=== PATIENT | female | born 2000 | race Caucasian/White ===

== ENCOUNTER 2022-11-13 15:04 | Emergency (ER) | payer MEDICAID, SELFPAY ==
[2022-11-13 15:23] VITALS: BP 131/77; PULSE 89; RESP 16; TEMP 37.2; O2SAT 99
--- NOTE | 2022-11-13 15:45 | ED.LOWEXIN ---
HPI - Extremity Injury (Lower) General Chief Complaint: Extremity Injury, Lower Stated Complaint: left foot pain Time Seen by Provider: 11/13/22 15:45 Source: patient Mode of arrival: ambulatory Limitations: no limitations History of Present Illness HPI Narrative: 22-year-old female presented for complaint of left foot pain over the last 2 days. She endorses recent diagnosis of diabetic neuropathy and bone necrosis. Taking gabapentin but states it is not helping. States she woke yesterday with a feeling of 'compression and constriction' in the foot/ankle area and was unable to go to work x2 days. Denies injury. Not taking anything additional for pain. Denies swelling or bruising. Related Data Allergies Allergy/AdvReac Type Severity Reaction Status Date / Time No Known Allergies Allergy Unknown Unverified 07/31/12 12:27 Review of Systems Review of Systems: CONSTITUTIONAL: Denies body aches, fever, chills EYES: Denies visual changes ENT: Denies rhinorrhea, congestion CARDIOVASCULAR: Denies chest pain, palpitations, or edema. RESPIRATORY: Denies cough or dyspnea. GASTROINTESTINAL: Denies abdominal pain, nausea, vomiting, or diarrhea. SKIN: Denies rash, itching, or wounds. MUSCULOSKELETAL: reports left foot pain Denies back pain, joint pain, or myalgia. NEUROLOGIC: Denies headache, numbness, tingling, or weakness. All systems reviewed & are unremarkable except as noted in HPI and below PMFSH Past Medical History Medical History (Updated 11/13/22 @ 15:54 by Elvira Royal, ZORA) Diabetes Comments At time of signature, I have reviewed and agree with nursing past medical, surgical, social and family history unless otherwise noted. Please see nursing chart for further information. There is no relevant family history pertinent to the presenting complaint Exam Narrative: GENERAL: Well-appearing HEAD: Normocephalic, atraumatic. EYES: PERRLA, conjunctivae clear NECK: Supple. CHEST: Speaks in full sentences. No respiratory distress. HEART: Regular rate and rhythm. Normal and equal peripheral pulses. EXTREMITIES: Left foot has normal strength and sensation, full range of motion at ankle. No erythema, swelling or ecchymosis, No point tenderness. No open wounds, or obvious deformity; alignment normal, pulse palpable and equal bilaterally, skin warm, dry, pink. Capillary refill less than 3 seconds. SKIN: Warm, dry, no rash. NEURO: Alert and oriented x3. PSYCH: Normal mood and affect Course Course Emergency Course: Patient is aware of diagnosis, understands and agrees to treatment plan. Anticipatory guidance given. Patient agrees to follow-up as directed and is aware of reasons to seek care at the emergency department. Portions of this record may have been created with voice recognition software Level of Care: Express Care Visit Vital Signs Vital signs: Vital Signs Temperature 98.9 F 11/13/22 15:23 Pulse Rate 89 11/13/22 15:23 Respiratory Rate 16 11/13/22 15:23 Blood Pressure 131/77 11/13/22 15:23 Pulse Oximetry 99 11/13/22 15:23 Oxygen Delivery Room Air 11/13/22 15:23 Temperature 98.9 F 11/13/22 15:23 Pulse Rate 89 11/13/22 15:23 Respiratory Rate 16 11/13/22 15:23 Blood Pressure 131/77 11/13/22 15:23 Pulse Oximetry 99 11/13/22 15:23 Oxygen Delivery Room Air 11/13/22 15:23 Reviewed MDM - Extremity Injury (Lower) MDM Narrative Medical decision making narrative: Discussed physical exam findings. Patient plans to discuss her complaint with her PCP tomorrow, she states she just needed a work note today. Advised supportive measures and signs/symptoms to go to the ER. Pt is appropriate for outpt treatment and f/u. Differential Diagnosis Differential diagnosis: Likely other (foot sprain/strain, plantar fasciitis, neuropathy, arthritis, gout, contusion) Discharge Plan Discharge Clinical Impression: Acute pain of left foot Patient Disposition
== END 2022-11-13 15:53 | disposition home or self-care (01) ==
PROVIDERS: Emergency Provider Nurse Practitioner Family
DX: M79.672 Pain in left foot (principal); E11.40 Type 2 diabetes mellitus with diabetic neuropathy, unspecified
CPT/HCPCS: 99212; G0463

== ENCOUNTER 2023-05-21 09:49 | Emergency (ER) | payer OTHER, SELFPAY ==
[2023-05-21 10:03] VITALS: BP 147/95; PULSE 106; RESP 16; TEMP 36.6; O2SAT 100
--- NOTE | 2023-05-21 10:16 | ED.GENADULT ---
HPI - General Adult General Chief complaint: Extremity Problem,Nontraumatic Stated complaint: Left Foot Irritation Source: patient, RN notes reviewed and old records reviewed Mode of arrival: ambulatory Limitations: no limitations History of Present Illness HPI narrative: 23-year-old female presents to [facility] with complaints of left ankle pain. Patient states had partial Achilles tear in December 2022 that was repaired. Patient states has had pain on and off since but a week ago began having severe pain. patient states followed up with orthopedist to started on steroids. Patient states pain is worsening then today at work could feel tendon moving so she had to leave work. Related Data Home Medications Medication Instructions Recorded Confirmed blood-glucose meter (OneTouch 05/21/23 05/21/23 Ultra2 Meter) bupropion HCl 150 mg 24 hr tablet, 150 mg PO DAILY 05/21/23 05/21/23 extended release dulaglutide 1.5 mg/0.5 mL 1.5 mg subcut WEEKLY 05/21/23 05/21/23 [facility] lisinopril 2.5 mg tablet 2.5 mg PO DAILY 05/21/23 05/21/23 metformin 500 mg tablet,extended 500 mg PO DAILY 05/21/23 05/21/23 release 24 hr omeprazole 20 mg capsule,delayed 20 mg PO DAILY 05/21/23 05/21/23 release pramipexole 0.125 mg tablet 0.125 mg PO DAILY 05/21/23 05/21/23 topiramate 25 mg tablet mg 05/21/23 Allergies Allergy/AdvReac Type Severity Reaction Status Date / Time [id number] Reductase AdvReac Hives Verified 05/21/23 10:23 Inhibitor Review of Systems Constitutional: Constitutional: Reports no additional constitutional complaints, Denies body ache(s), Denies chills, Denies fatigue, Denies fever(s) and Denies headache(s) Eyes: Eyes: Reports no additional eye complaints and Denies blurry vision ENT: Reports system reviewed and no additional complaints, except as documented, Denies vertigo, Denies dizziness, Denies ear discharge, Denies otalgia, Denies facial pain, Denies headache(s), Denies nasal congestion, Denies nasal discharge, Denies sinus pain, Denies sinus pressure and Denies sore throat Cardiovascular: Cardiovascular: Reports no additional cardiovascular complaints, Denies chest pain, Denies chest pain at rest, Denies rapid heart rate and Denies dyspnea Respiratory: Respiratory: Reports no additional respiratory complaints, Denies chest congestion, Denies cough, Denies pain on inspiration, Denies pain with cough and Denies dyspnea Gastrointestinal: Gastrointestinal: Denies abdominal pain, Denies diarrhea, Denies nausea and Denies vomiting Musculoskeletal: Musculoskeletal: Reports as per HPI Comments: left Achilles tendon pain Integumentary/Breasts: Skin/Breast: Denies rash Neurologic: Reports system reviewed and no additional complaints, except as documented, Denies vertigo, Denies dizziness and Denies headache(s) Endocrine: Endocrine: Denies fatigue PMFSH Past Medical History Medical History Diabetes Comments At the time of my signature, I reviewed and agree with the nursing past medical, surgical, social, and family history. There is no relevant family history pertinent to the patient complaint. Exam Const: General: cooperative, healthy appearing, no acute distress and well nourished Nutritional Appearance: well nourished Orientation/consciousness: patient oriented x3 Limitations: no limitations HENMT: Head: normal to inspection and normocephalic Ears: external ears normal Face/Nose/Sinus: normal facial exam Face and sinus: normal facial exam Eyes: General: appearance normal, both eyes and all related structures Sclera: sclerae normal Pupils: Equal, round and reactive pupils present Resp: Effort & Inspection: normal respiratory effort, able to speak in complete sentences, no audible wheezes, no cough and no respiratory distress Skin: General skin exam: normal color and no rashes or lesions noted
== END 2023-05-21 10:28 | disposition home or self-care (01) ==
PROVIDERS: Emergency Provider Registered Nurse
DX: M67.972 Unspecified disorder of synovium and tendon, left ankle and foot (principal); E11.9 Type 2 diabetes mellitus without complications; Z79.899 Other long term (current) drug therapy; Z79.84 Long term (current) use of oral hypoglycemic drugs
CPT/HCPCS: 99212; G0463

== ENCOUNTER 2023-11-28 17:29 | Emergency (ER) | payer OTHER, SELFPAY ==
--- NOTE | 2023-11-28 17:33 | ED.EYEPROB ---
HPI - Eye Problem General Chief complaint: Eye Problems Stated complaint: Right Eye Irritation Time Seen by Provider: 11/28/23 17:33 Source: patient Mode of arrival: ambulatory Limitations: no limitations History of Present Illness HPI Narrative: Patient is a 23 y/o female. Presents with right eye irritation, redness and burning since this morning. Patient denies eye being crusted shut this morning. Related Data Home Medications Medication Instructions Recorded Confirmed blood-glucose meter (OneTouch 05/21/23 11/28/23 Ultra2 Meter) bupropion HCl 150 mg 24 hr tablet, 150 mg PO DAILY 05/21/23 11/28/23 extended release dulaglutide 1.5 mg/0.5 mL 1.5 mg subcut WEEKLY 05/21/23 11/28/23 [facility] lisinopril 2.5 mg tablet 2.5 mg PO DAILY 05/21/23 11/28/23 metformin 500 mg tablet,extended 500 mg PO DAILY 05/21/23 11/28/23 release 24 hr omeprazole 20 mg capsule,delayed 20 mg PO DAILY 05/21/23 11/28/23 release pramipexole 0.125 mg tablet 0.125 mg PO DAILY 05/21/23 11/28/23 topiramate 25 mg tablet 25 mg PO DAILY 05/21/23 11/28/23 etonogestrel 68 mg subdermal 1 implant subdermal ONCE 11/28/23 11/28/23 implant (Nexplanon) Allergies Allergy/AdvReac Type Severity Reaction Status Date / Time [id number] Reductase AdvReac Hives Verified 11/28/23 17:33 Inhibitor Review of Systems Review of Systems: All systems reviewed & are unremarkable except as noted in HPI and below Constitutional: Constitutional: Denies body ache(s), Denies fever(s), Denies headache(s), Denies malaise and Denies weakness Eyes: Eyes: Denies blurry vision, Denies eye discharge, Reports irritation, Reports itchy eyes, Denies loss of vision and Denies eye pain ENT: Denies otalgia, Denies headache(s), Denies nasal discharge, Denies sinus pain and Denies sore throat Cardiovascular: Cardiovascular: Denies chest pain, Denies irregular heart rhythm and Denies dyspnea Respiratory: Respiratory: Denies dyspnea Gastrointestinal: Gastrointestinal: Denies abdominal pain, Denies diarrhea, Denies nausea and Denies vomiting Musculoskeletal: Musculoskeletal: Denies back pain, Denies myalgias and Denies arthralgias Integumentary/Breasts: Skin/Breast: Denies pruritus and Denies rash Neurologic: Denies headache(s), Denies loss of vision and Denies weakness Psychiatric: Psychiatric: Reports no additional psychiatric complaints Allergic/Immunologic: Allergic/Immunologic: Reports itchy eyes PMFSH Past Medical History Medical History Diabetes Comments At time of signature, agree with nursing past medical, surgical, social and family history. There is no relevant family history pertinent to the presenting complaint. Exam Const: General: cooperative, healthy appearing, comfortable, no acute distress and well nourished Nutritional Appearance: well nourished Orientation/consciousness: patient oriented x3 Limitations: no limitations HENMT: Head: normal to inspection, normocephalic and atraumatic Ears: external ears normal Face/Nose/Sinus: Normal external nose present, normal facial exam and face symmetric Face and sinus: normal facial exam and face symmetric Mouth: Yes lip normal Eyes: General: appearance normal, both eyes and all related structures Visual Pena: normal visual pena by confrontation Alignment and Position: alignment normal and position normal Periorbital: periorbital findings normal Eyelids: eyelids normal Conjunctivae: conjunctival abnormality right conjunctival injection diffuse Sclera: sclerae normal Pupils: Equal, round and reactive pupils present EOM: EOMs intact bilaterally Direct Ophthalmoscopy: no photophobia Other: No hyphema, no foreign body under the lids. Neck: Neck: normal visual inspection, full ROM, no lymphadenopathy and no meningeal signs Chest: Chest palpation & inspection: normal inspection of the chest Re
[2023-11-28 17:45] VITALS: BP 140/93; PULSE 103; RESP 18; TEMP 36.7; O2SAT 99
== END 2023-11-28 18:45 | disposition home or self-care (01) ==
PROVIDERS: Emergency Provider Nurse Practitioner Family
DX: H10.9 Unspecified conjunctivitis (principal); E11.9 Type 2 diabetes mellitus without complications; Z79.84 Long term (current) use of oral hypoglycemic drugs
CPT/HCPCS: 99213; G0463

== ENCOUNTER 2023-12-06 09:18 | Emergency (ER) | payer OTHER, SELFPAY ==
[2023-12-06 09:21] VITALS: BP 146/91; PULSE 135; RESP 20; TEMP 37.6; O2SAT 99
[2023-12-06 09:49] LABS: EDCOVIDSCREEN Negative (Negative); EDINFLUASCREEN Negative (Negative); EDINFLUBSCREEN Negative (Negative)
[2023-12-06 09:53] LABS: EDSTREPNEGPOS1 Negative (Negative)
--- NOTE | 2023-12-06 10:11 | ED.GENADULT ---
HPI - General Adult General Chief complaint: Upper Respiratory Infection Stated complaint: Sore Throat Source: patient Mode of arrival: ambulatory Limitations: no limitations History of Present Illness HPI narrative: Patient presents for evaluation of sick symptoms for last 2 days. Symptoms include sinus congestion, sore throat, and chills. No fever, nausea, vomiting, diarrhea, cough, otalgia. No recent sick contacts to her knowledge. She tried taking Benadryl without improvement thereafter. She does not smoke. Related Data Home Medications Medication Instructions Recorded Confirmed blood-glucose meter ([employer] 05/21/23 12/06/23 Ultra2 Meter) bupropion HCl 150 mg 24 hr tablet, 150 mg PO DAILY 05/21/23 12/06/23 extended release dulaglutide 1.5 mg/0.5 mL 1.5 mg subcut WEEKLY 05/21/23 12/06/23 [facility] lisinopril 2.5 mg tablet 2.5 mg PO DAILY 05/21/23 12/06/23 metformin 500 mg tablet,extended 500 mg PO DAILY 05/21/23 12/06/23 release 24 hr omeprazole 20 mg capsule,delayed 20 mg PO DAILY 05/21/23 12/06/23 release pramipexole 0.125 mg tablet 0.125 mg PO DAILY 05/21/23 12/06/23 topiramate 25 mg tablet 25 mg PO DAILY 05/21/23 12/06/23 etonogestrel 68 mg subdermal 1 implant subdermal ONCE 11/28/23 12/06/23 implant (Nexplanon) Allergies Allergy/AdvReac Type Severity Reaction Status Date / Time Zltebid-NBQ-OnS Reductase AdvReac Hives Verified 12/06/23 09:28 Inhibitor Review of Systems Review of Systems: CONSTITUTIONAL: Reports chills. Denies fever or sweats. EYES: Denies visual changes, redness, or discharge. ENT: Reports sinus congestion and sore throat. Denies rhinorrhea or otalgia. CARDIOVASCULAR: Denies chest pain, palpitations, or edema. RESPIRATORY: Denies cough or dyspnea. GASTROINTESTINAL: Denies abdominal pain, nausea, vomiting, or diarrhea. GENITOURINARY: Denies dysuria or hematuria. SKIN: Denies rash or itching. MUSCULOSKELETAL: Denies back pain, joint pain, or myalgia. NEUROLOGIC: Denies headache, numbness, dizziness, or weakness. PSYCHIATRIC: Denies anxiety or depression. [facility] Past Medical History Medical History Diabetes Surgical History Surgical History H/O Achilles tendon repair Family History Family History Mother Family history non-contributory Social History Social History Smoking status: Current every day smoker Tobacco type: e-cigarettes/vaping Substance use: never Gender identity (if verbalized by the patient): Female Spiritual care concerns: No Exam Narrative: GENERAL: Well-appearing, well-nourished, and in no acute distress. HEAD: Normocephalic, atraumatic. EYES: PERRLA and EOMI. ENT: Nares clear, no rhinorrhea or epistaxis. Mucous membranes moist. Oropharynx without tonsillar hypertrophy exudate or other lesions. Bilateral TMs pearly duong nonbulging NECK: Supple. No adenopathy or masses. No carotid bruits or JVD CHEST: Clear to auscultation. No respiratory distress. No wheezes rales or rhonchi HEART: Regular rate and rhythm. No murmur heard. Normal peripheral pulses. ABDOMEN: Soft, nontender, nondistended, normal active bowel sounds. EXTREMITIES: Normal range of motion. No edema. SKIN: Warm, dry, no rash. NEURO: No focal deficits. Alert and oriented x3. PSYCH: Normal mood and affect. Course Course Emergency Course: This is a 23-year-old female who presented for evaluation of sick symptoms. COVID, influenza, strep were all negative. Exam consistent with acute viral syndrome. Recommend [id number] agents for symptom management. Increase hydration and go to the emergency department for worsening symptoms. Follow up with primary care provider
[2023-12-06 10:32] LABS: EDCOVIDSCREEN Negative (Negative); EDINFLUASCREEN Negative (Negative); EDINFLUBSCREEN Negative (Negative); EDSTREPNEGPOS1 Negative (Negative)
== END 2023-12-06 10:05 | disposition home or self-care (01) ==
PROVIDERS: Emergency Provider Nurse Practitioner
DX: B34.9 Viral infection, unspecified (principal); Z20.822 Contact with and (suspected) exposure to COVID-19; E11.9 Type 2 diabetes mellitus without complications; Z79.84 Long term (current) use of oral hypoglycemic drugs; F17.290 Nicotine dependence, other tobacco product, uncomplicated
CPT/HCPCS: 87081; 87635; 87804; 87880; 99213; G0463